=== PATIENT | male | born 1960 | race Caucasian/White ===

== ENCOUNTER 2023-09-28 11:36 | Outpatient (CLI) | payer OTHER, SELFPAY ==
--- NOTE | 2023-09-28 12:44 | W.ANESCHARGE ---
Anesthesia Charges Start Date/Time Anesthesia Start Date: 09/28/23 Anesthesia Start Time: 12:56 Stop Date/Time Anesthesia Stop Date: 09/28/23 Anesthesia Stop Time: 13:33
--- NOTE | 2023-09-28 13:37 | W.ANESCHARGE ---
Anesthesia Charges Start Date/Time Anesthesia Start Date: 09/28/23 Anesthesia Start Time: 12:56 Stop Date/Time Anesthesia Stop Date: 09/28/23 Anesthesia Stop Time: 13:33
== END 2023-09-28 11:37 | disposition home or self-care (01) ==
LOC: OP CLINIC 11:41
PROVIDERS: PCP Family Medicine; Visit Provider Internal Medicine Gastroenterology
DX: R13.10 Dysphagia, unspecified (principal); K22.5 Diverticulum of esophagus, acquired; K44.9 Diaphragmatic hernia without obstruction or gangrene; K22.70 Barrett's esophagus without dysplasia; R63.4 Abnormal weight loss
CPT/HCPCS: 00731; 43239; 88305; J2704; J3490